=== PATIENT | female | born 1950 | race Caucasian/White ===

== ENCOUNTER → 2017-07-27 | Outpatient (CLI) | payer MEDICARE, OTHER ==
--- NOTE | 2017-07-27 14:39 | 2DMMODE ---
[place] [address] 2 D/M-MODE ECHOCARDIOGRAM Name: NGASANTA F Room: [facility]#: [id number] Admission: 07/27/17 Attend Phys: Dinah Lima MD Discharge: Date of : 52 Date of Service: 07/27/17 1439 Report #: [id number] THIS REPORT FOR: //name// APPROVED REPORT Study performed: 07/27/2017 13:22:04 EXAM: Comprehensive 2D, Doppler, and color-flow Echocardiogram Patient Location: Out-Patient Status: routine BSA: 2.32 HR: 65 bpm BP: 112/66 mmHg Other Information Study Quality: Adequate Indications Dyspnea 2D Dimensions LVEF(%): 57.57 (>50%) IVSd: 12.37 (7-11mm) LVOT Diam: 20.04 (18-24mm) LVDd: 46.83 mm PWd: 12.41 (7-11mm) Ascending Ao: 28.08 (22-36mm) LVDs: 32.67 (25-40mm) Aortic Root: 24.78 mm Heath's LVEF: 57.57 % Volumes Left Atrial Volume (Systole) LA ESV Index: 16.00 mL/m2 Aortic Valve AoV Peak Elkin.: 1.30 m/s AO Peak Gr.: 6.78 mmHg LVOT Max P.04 mmHg AO Mean Gr.: 3.56 mmHg LVOT Mean P.52 mmHg LVOT Max V: 1.12 m/s AO V2 VTI: 24.64 cm LVOT Mean V: 0.73 m/s MIKEL (VTI): 2.93 cm2 LVOT V1 VTI: 22.87 cm Mitral Valve E/A Ratio: 0.82 MV Decel. Time: 215.48 [place] [address] 2 D/M-MODE ECHOCARDIOGRAM Name: SANTA SYLVESTER Room: [facility]#: [id number] Admission: 07/27/17 Attend Phys: Dinah Lima MD Discharge: Date of : 52 Date of Service: 07/27/17 1439 Report #: [id number] MV E Max Elkin.: 0.58 m/s MV PHT: 62.49 ms MVA (PHT): 3.52 cm2 TDI E/Lateral E': 4.46 E/Medial E': 5.80 Medial E' Elkin.: 0.10 m/s Lateral E' Elkin.: 0.13 m/s Pulmonary Valve PV Peak Elkin.: 1.01 m/s PV Peak Gr.: 4.04 mmHg Tricuspid Valve TR Peak Gr.: 29.71 mmHg RVSP: 34.71 mmHg Left Ventricle The left ventricle is normal size. There is normal LV segmental wall motion. Mild concentric left ventricular hypertrophy. Left ventricular systolic function is normal. The left ventricular ejection fraction is within the normal range. LVEF is 55-60%. Grade I - abnormal relaxation pattern. Right Ventricle The right ventricle is normal size. The right ventricular systolic function is normal. Atria The left atrium size is normal. The right atrium size is normal. Aortic Valve The aortic valve is not well visualized. No aortic regurgitation is present. There is no aortic valvular stenosis. Mitral Valve The mitral valve is normal in structure. There is no mitral valve regurgitation noted. No evidence of mitral valve stenosis. Tricuspid Valve The tricuspid valve is normal in structure. Mild tricuspid regurgitation. The RVSP is _34.7 mmHg. Pulmonic Valve Pulmonic valve is not well visualized. There is no pulmonic [place] [address] 2 D/M-MODE ECHOCARDIOGRAM Name: SANTA SYLVESTER Room: [facility]#: [id number] Admission: 07/27/17 Attend Phys: Dinah Lima MD Discharge: Date of : 52 Date of Service: 07/27/17 1439 Report #: [id number] Great Vessels The aortic root is normal in size. IVC is normal in size and collapses with >50% inspiration Pericardium There is no pericardial effusion. <Conclusion> Mild concentric left ventricular hypertrophy. LVEF is 55-60%. <ELECTRONICALLY SIGNED> By: Benjy Harris MD, FACC 07/27/17 1439 1439 1439 Benjy Harris MD, FACC /INF
== END ==
LOC: M.CRD 07-17 15:47
DX: I51.7 Cardiomegaly (principal)